=== PATIENT | male | born 2000 | race Two or more races ===

== ENCOUNTER 2018-07-10 00:22 | Emergency (ER) | payer SELFPAY ==
[~2018-07-10] VITALS: Ht 172.7 cm; Wt 86.2 kg
[2018-07-10 00:31] VITALS: BP 113/73
== END 2018-07-10 03:01 | disposition home or self-care (01) ==
LOC: ER 00:22
DX: M25.531 Pain in right wrist (principal)
CPT/HCPCS: 73110

== ENCOUNTER 2021-12-26 20:09 | Emergency (ER) | payer MEDICAID ==
[~2021-12-26] VITALS: Ht 188 cm; Wt 100.0 kg
[2021-12-27 00:55] VITALS: BP 130/83
== END 2021-12-27 02:11 | disposition home or self-care (01) ==
LOC: EDUNIT# 20:09 → ER 20:13
DX: R07.89 Other chest pain (principal); M25.511 Pain in right shoulder; M79.621 Pain in right upper arm; M79.18 Myalgia, other site; V43.52XA Car driver injured in collision with other type car in traffic accident, initial encounter; Y93.89 Activity, other specified; Y92.89 Other specified places as the place of occurrence of the external cause; Y99.8 Other external cause status
CPT/HCPCS: 71046; 71120; 73030; 73060

== ENCOUNTER 2023-04-06 11:18 | Emergency (ER) | payer SELFPAY ==
[~2023-04-06] VITALS: Ht 172.7 cm; Wt 124.3 kg
[2023-04-06 14:43] VITALS: TEMP 97.7
[2023-04-06] MEDS ORDERED: SODIUM CHLORIDE 0.9% 1,000 ML IV ONE (15:15)
[2023-04-06] MEDS ORDERED: DexAMETHasone SOD PHOS 10MG/1ML VIAL INJ IV ONE (15:15)
[2023-04-06] MEDS ORDERED: MORPHINE SULFATE INJ 2 MG/ml SYRG IM ONE (15:15)
[2023-04-06] MEDS ORDERED: IOHEXOL 300 MG/ML 100ML BOTTLE IJ ONE (15:28)
[2023-04-06 15:57] LABS: Rapid Strep A Screen-Throat Negative
[2023-04-06 16:00] LABS: Basophils # (auto) 0.1 10 ^3/uL (0-0.2); Basophils % (auto) 0.4 % (0.0-2.0); Eosinophils # (auto) 0.2 10 ^3/uL (0-0.8); Eosinophils % (auto) 1.6 % (0.0-7.0); Hematocrit 45.3 % (41.0-53.0); Hemoglobin 14.9 g/dL (13.5-17.5); Lymphocytes # (auto) 1.8 10 ^3/uL (0.4-5.4); Lymphocytes % (auto) 12.3 % (10.0-50.0); Mean Corpuscular Hemoglobin 30.6 pg (28.0-32.0); Mean Corpuscular Hgb Conc. 32.8 g/dL (32.0-36.0); Mean Corpuscular Volume 93.3 fL (80.0-100.0); Monocytes # (auto) 0.9 10 ^3/uL (0-1.3); Monocytes % (auto) 6.4 % (0.0-12.0); Neutrophils # (auto) 11.3 10 ^3/uL (1.6-8.6); Neutrophils % (auto) 79.3 % (37.0-80.0); Red Blood Cells 4.85 10^6/uL (4.5-5.90); Red Cell Distribution Width 12.2 % (11.8-14.3); White Blood Cell 14.2 10^3/uL (4.4-10.8)
[2023-04-06] MEDS ORDERED: DexAMETHasone SOD PHOS 10MG/1ML VIAL INJ IM ONE (16:00)
[2023-04-06] MEDS ORDERED: AMPICILLIN & SULBACTAM SODIUM 3 GM in SODIUM CHL 0.9% 100 ML IV SCH (16:00)
[2023-04-06 16:19] LABS: Chloride 100 mmol/L (98-107); Potassium 4.4 mmol/L (3.5-5.1); Sodium 136 mmol/L (136-145)
[2023-04-06 16:20] LABS: Anion Gap 7 (5-15); Calcium 10.2 mg/dL (8.5-10.1); Carbon Dioxide 29 mmol/L (20-30)
[2023-04-06 16:25] LABS: BUN/Creatinine Ratio 10.1 (10.0-20.0); Blood Urea Nitrogen 10 mg/dL (9-23); Glucose 90 mg/dL (74-106)
[2023-04-06] MEDS ORDERED: HYDROmorphone HCL 2 MG/ML VL/or syr IV ONE (18:00)
[2023-04-06] MEDS ORDERED: CLINDAMYCIN 900MG IV 50 ML IV ONE (18:00)
[2023-04-06 18:02] VITALS: O2SAT 93
[2023-04-06 18:04] VITALS: BP 134/57; PULSE 91; RESP 16
== END 2023-04-06 19:22 | disposition left against medical advice (07) ==
LOC: ER 11:18
DX: J36 Peritonsillar abscess (principal)
CPT/HCPCS: 36415; 70491; 80048; 83605; 85025; 87040; 87070; 87880; 96361; 96365; 96368; 96372; 96375; 99285; J1100; J1170; J2270; J3490; J7030; Q9967

== ENCOUNTER 2023-09-16 21:55 | Emergency (ER) | payer SELFPAY ==
[~2023-09-16] VITALS: Ht 172.7 cm; Wt 133.6 kg
[2023-09-16 22:14] VITALS: BP 127/83; PULSE 112; RESP 18; TEMP 98.9; O2SAT 95
[2023-09-17] MEDS: ONDANSETRON ODT 4 MG TAB PO ONE (00:05)
== END 2023-09-17 00:07 | disposition home or self-care (01) ==
LOC: ER 21:55
DX: A05.9 Bacterial foodborne intoxication, unspecified (principal)
CPT/HCPCS: 99283; Q0162